=== PATIENT | male | born 1975 | race Caucasian/White ===

== ENCOUNTER 2022-07-12 16:14 | Emergency (ER) | payer OTHER ==
[~2022-07-12] VITALS: Ht 172.7 cm; Wt 93.0 kg
[2022-07-12 16:44] LABS: BASOPHILS ABSOLUTE AUTO 0.04 K/mm3 (0.00-0.23); BASOPHILS PERCENT AUTO 1 % (0-2); EOSINOPHILS PERCENT AUTO 1 % (0-6); Hematocrit 41.9 % (37.0-53.0); Hemoglobin 14.6 g/dL (13.5-17.5); IMMATURE GRAN ABSOLUTE AUTO 0.05 K/mm3 (0.00-0.10); IMMATURE GRAN PERCENT AUTO 1 % (0-1); LYMPHOCYTES ABSOLUTE AUTO 2.63 K/mm3 (0.84-5.20); LYMPHOCYTES PERCENT AUTO 33 % (21-46); MONOCYTES ABSOLUTE AUTO 0.82 K/mm3 (0.16-1.47); MONOCYTES PERCENT AUTO 10 % (4-13); Mean Corpuscular HGB 29.7 pg (26.0-34.0); Mean Corpuscular HGB Conc 34.8 g/dL (31.5-36.5); Mean Corpuscular Volume 85 fL (80-100); Mean Platelet Volume 10.3 fL (9.1-12.4); NEUTROPHILS PERCENT AUTO 54 % (41-73); Platelet Count 164 K/mm3 (150-400); RDW Coefficient Variation 13.4 % (11.7-14.2); RDW Standard Deviation 41.9 fL (35.1-46.3); Red Blood Cell Count 4.91 M/mm3 (4.30-5.90); White Blood Cell Count 7.94 K/mm3 (4.00-11.30)
[2022-07-12 17:16] LABS: Albumin, Blood 3.8 g/dL (3.4-5.0); Albumin/Globulin Ratio 1.1 (0.8-1.8); Bilirubin, Total 0.3 mg/dL (0.1-1.0); Calcium, Blood 8.6 mg/dL (8.5-10.1); Globulin, Blood 3.4 g/dL (2.2-4.0); Potassium, Blood 3.6 mmol/L (3.5-5.5); Total Protein, Blood 7.2 g/dL (6.4-8.2)
[2022-07-12] MEDS ORDERED: Lisinopril10 MG PO (18:35)
[2022-07-12] MEDS ORDERED: SERT100 PO (18:35)
[2022-07-12] MEDS ORDERED: Budeprion Xl300 MG PO (18:35)
[2022-07-12 19:15] VITALS: BP 128/61
[2022-07-12] MEDS ORDERED: Pepcid40 MG PO (19:15)
== END 2022-07-12 19:28 | disposition home or self-care (01) ==
LOC: ER 16:14
PROVIDERS: Physician Assistant
DX: I10 Essential (primary) hypertension (principal); E11.65 Type 2 diabetes mellitus with hyperglycemia; Z68.31 Body mass index [BMI] 31.0-31.9, adult; Z91.013 Allergy to seafood
CPT/HCPCS: 71046; 80053; 83880; 84484; 85025; 93005; 93010; 99285-25; A9270